=== PATIENT | male | born 1985 | race American Indian/Alaskan Native ===

== ENCOUNTER 2019-12-06 22:39 | Emergency (ER) | payer SELFPAY ==
[2019-12-06 23:09] VITALS: BP 119/71
== END 2019-12-07 00:40 | disposition left against medical advice (07) ==
LOC: ED 22:39
DX: J11.1 Influenza due to unidentified influenza virus with other respiratory manifestations (principal); Z53.21 Procedure and treatment not carried out due to patient leaving prior to being seen by health care provider